=== PATIENT | female | born 1980 | race Caucasian/White ===

== ENCOUNTER 2020-09-25 14:08 | Emergency (ER) | payer OTHER ==
[2020-09-25 14:42] LABS: HCG UR QUAL NEGATIVE
[2020-09-25 14:43] LABS: BILIRUBIN,URINE NEGATIVE (NEGATIVE); GLUCOSE, URINE (UA) NEGATIVE (NEGATIVE); KETONES,URINE (UA) NEGATIVE (NEGATIVE); LEUKOCYTE ESTERASE, URINE NEGATIVE (NEGATIVE); NITRITE,URINE NEGATIVE (NEGATIVE); OCCULT BLOOD,URINE SMALL (NEGATIVE); PROTEIN,URINE NEGATIVE (NEGATIVE); UROBILINOGEN,URINE 0.2 (NORMAL) E.U./dL (NORMAL)
[2020-09-25 14:44] LABS: CLARITY,URINE CLEAR (CLEAR)
[2020-09-25 14:45] LABS: BACTERIA,URINE None Seen /HPF (None Seen); RBC,URINE 0-5 /HPF (0-5); SQUAMOUS EPITHELIAL CELL,UR RARE Squamous (<= Few); WBC,URINE 0-3 /HPF (0-5)
[2020-09-25 14:58] LABS: BASOPHILS % (AUTO) 0.3 %; EOSINOPHILS # (AUTO) 0.5 10^3/uL (0.0-0.7); EOSINOPHILS % (AUTO) 4.1 %; HGB - HEMOGLOBIN 14.2 g/dL (12.0-16.0); LYMPHOCYTES # (AUTO) 2.8 10^3/uL (1.5-3.5); LYMPHOCYTES % (AUTO) 23.2 %; MEAN CORPUSCULAR HEMOGLOBIN 33.9 pg (27.0-31.0); MEAN CORPUSCULAR HGB CONC 34.6 g/dL (32.0-36.0); MEAN CORPUSCULAR VOLUME 97.9 fL (81.0-99.0); MONOCYTES # (AUTO) 0.8 10^3/uL (0.0-1.0); MONOCYTES % (AUTO) 6.3 %; NEUTROPHILS # (AUTO) 7.8 10^3/uL (1.5-6.6); NEUTROPHILS % (AUTO) 65.8 %; PLT - PLATELET COUNT 277 10^3/uL (130-450); RED BLOOD COUNT 4.19 10^6/uL (4.20-5.40); RED CELL DISTRIBUTION WIDTH 11.6 % (12.0-15.0); WHITE BLOOD COUNT 11.9 x10^3/uL (4.8-10.8)
[2020-09-25 15:10] LABS: ALBUMIN 4.2 g/dL (3.2-5.5); ALBUMIN/GLOBULIN RATIO 1.4 (1.0-2.2); BILIRUBIN,TOTAL 0.9 mg/dL (0.2-1.0); CALCIUM 9.4 mg/dL (8.5-10.3); CREATININE 0.8 mg/dL (0.4-1.0); POTASSIUM 3.9 mmol/L (3.5-5.0); TOTAL PROTEIN 7.3 g/dL (6.7-8.2)
--- NOTE | 2020-09-25 16:41 | ED Physician Documentation ---
History of Present Illness - Stated complaint Stated Complaint: ABD PX - Chief complaint Chief Complaint: Abd Pain - Additonal information Additional information: Yesterday she was having a [id number] female presents the emergency depart ment for evaluation of rectal bleeding and lower abdominal pain. Of lower belly pain. She defecated but when she wiped she noticed that there was blood on the toilet paper though none on the stool. She dismissed it until today when she had another recurrence of abdominal pain followed by defecation. Again the stool was brown in the toilet call letter was not pink but when she wiped she had a large amount of blood on the toilet paper. Thus she returns to the ER. Daily tobacco and NSAID user. No history of surgery on her abdomen. Denies constipation or painful bowel movements. Review of Systems Constitutional: denies: Fever, Chills Nose: reports: Reviewed and negative Throat: reports: Reviewed and negative Cardiac: reports: Reviewed and negative Respiratory: reports: Reviewed and negative GI: reports: Abdominal Pain, Bloody / black stool. denies: Nausea, Constipation, Diarrhea : denies: Dysuria Skin: reports: Reviewed and negative Musculoskeletal: reports: Reviewed and negative PD PAST MEDICAL HISTORY - Allergies Allergies/Adverse Reactions: Allergies Allergy/AdvReac Type Severity Reaction Status Date / Time latex Allergy Rash Verified 09/25/20 14:23 PD ED PE EXPANDED - General General: Alert, No acute distress - Cardiac Cardiac: Regular Rate, Radial strong equal, Pedal strong equal, Cap refill < 2 sec. No: Murmur Present - Respiratory Respiratory: Clear to ausultation nathalie. No: Distress, Labored - Abdomen Abdomen: Normal Bowel sounds, Tender to palpation (lower abd tenderness without guarding or rebound) - Rectal Rectal: Normal Tone, Other (Digital rectal exam unrevealing. No tenderness. Brown stool in vault sent for guaiac. No obvious hemorrhoids fissures or lesions.). No: Hemorrhoid - Derm Derm: Normal color, Warm and dry Results - Vitals Vitals: Vital Signs - 24 hr 09/25/20 09/25/20 14:19 16:54 Temperature 36.3 C L 36.4 C L Heart Rate 67 55 L Respiratory 16 17 Rate Blood Pressure 124/74 124/70 O2 Saturation 100 100 Oxygen O2 Source Room air - Labs Labs: Microbiology 09/25/20 16:39 Occult Blood - Final Stool Laboratory Tests 09/25/20 09/25/20 09/25/20 12:51 12:51 14:26 WBC 11.9 H RBC 4.19 L Hgb 14.2 Hct 41.0 MCV 97.9 MCH 33.9 H MCHC 34.6 RDW 11.6 L Plt Count 277 MPV 9.0 Neut # (Auto) 7.8 H Lymph # (Auto) 2.8 Evans # (Auto) 0.8 Eos # (Auto) 0.5 Baso # (Auto) 0.0 Absolute Nucleated RBC 0.00 Nucleated RBC % 0.0 Sodium 135 Potassium 3.9 Chloride 103 Carbon Dioxide 26 Anion Gap 6.0 BUN 10 Creatinine 0.8 Estimated GFR (MDRD) 81 L Glucose 106 H Calcium 9.4 Total Bilirubin 0.9 AST 14 ALT 10 Alkaline Phosphatase 91 Total Protein 7.3 Albumin 4.2 Globulin 3.1 Albumin/Globulin Ratio 1.4 Lipase 28 Urine Color YELLOW Urine Clarity CLEAR Urine pH 6.0 Ur Specific [place] 1.020 Urine Protein NEGATIVE Urine Glucose (UA) NEGATIVE Urine Ketones NEGATIVE Urine Occult Blood SMALL H Urine Nitrite NEGATIVE Urine Bilirubin NEGATIVE Urine Urobilinogen 0.2 (NORMAL) Ur Leukocyte Esterase NEGATIVE Urine RBC 0-5 Urine WBC 0-3 Ur Squamous Epith Cells RARE Squamous Urine Bacteria None Seen Ur Microscopic Review INDICATED Urine Culture Comments NOT INDICATED Urine HCG, Qual 09/25/20 14:26 WBC RBC Hgb Hct MCV MCH MCHC RDW Plt Count MPV Neut # (Auto) Lymph # (Auto) Evans # (Auto) Eos # (Auto) Baso # (Auto) Absolute Nucleated RBC Nucleated RBC % Sodium Potassium Chloride Carbon Dioxide Anion Gap BUN Creatinine Estimated GFR (MDRD) Glucose Calcium Total Bilirubin AST ALT Alkaline Phosphatase Total Protein Albumin Globulin Albumin/Globulin Ratio Lipase Urine Color Urine Clarity Urine pH Ur Specific [place] Urine Protein Urine Glucose (UA) Urine Ketones Urine Occult Blood Urine Nitrite Urine Bilirubin Urine Urobilinogen Ur Leukocyte Esterase Urine RBC Urine WBC Ur Squamous Epith Cells Urine Bacteria Ur Microscopic Review Urine Culture Comments Urine HCG, Qual NEGATIVE - Rads (name of study) CT abd/pelvis Radiology: Final report received (No acute abnormality in the abdomen or pelvis. Fibroid uterus. Left ovarian corpus luteal cyst.) PD MEDICAL DECISION MAKING - ED course Complexity details: reviewed results, re-evaluated patient, d/w patient ED course: 39-year-old female presents emergency department for evaluation of lower abdominal pain and rectal bleeding. She reports the pain and cramping began yesterday afternoon. Some of nausea but no vomiting. No fevers. She has been defecating normally and reports brown stools however after defecation she has noted that there is a large amount of blood on the toilet paper. Today on presentation she appears well and in no distress. Abdominal exam showed just a little bit of lower abdominal tenderness without guarding or rebound. I did complete a digital rectal exam to reveal nontender rectum brown stool in the vault. It was sent for guaiac and was negative. Screening labs show no significant worrisome abnormality. We did do a CT of the abdomen that was also unrevealing. At this time the cause of the lower abdominal pain and rectal bleeding is not clear. Certainly her hemoglobin is healthy. I have advised her to have close follow-up with [facility]. She may benefit from referral for a colonoscopy. This may be a small bleeding hemorrhoid but that certainly does not account for the lower abdominal pain thus a polyp is also in the differential. Emergent return precautions were discussed. Departure - Departure Disposition: 01 Home, Self Care Clinical Impression: Lower abdominal pain, Rectal bleeding Condition: Stable Record reviewed to determine appropriate education?: Yes Instructions: Abdominal Pain Comments: Mara you are seen in the ER today for lower abdominal pain and rectal bleeding. As we discussed your screening labs were essentially normal and did not show any worrisome findings. I did do a rectal exam that was also normal. The stool in your rectum was brown and was sent for guaiac and it did not show any blood. The CT of your abdomen also showed no worrisome findings with regards to your intestines or appendix. At this time you are to continue follow-up with [facility]. You may benefit from referral for a colonoscopy as polyps can cause similar symptoms. At any point you have worsening symptoms severe pain uncontrolled vomiting, feel faint or lightheaded please return immediately to the ER for a second look.
[2020-09-25] MEDS ORDERED: IOVERSOL 320 100 ML VIAL IVP ONE (16:43)
[2020-09-25 16:55] VITALS: BP 124/70
[2020-09-25] MEDS: IOVERSOL 320 100 ML VIAL IVP ONE (17:31)
--- NOTE | 2020-09-25 17:44 | CT Report ---
PROCEDURE: Abdomen/Pelvis W INDICATIONS: rectal bleeding, lower abd pain CONTRAST: IV CONTRAST: Optiray 320 ml: 100 PO CONTRAST: *NO PO CONTRAST TECHNIQUE: After the administration of intravenous contrast, 5 mm thick sections acquired from the diaphragms to the symphysis. 5 mm thick coronal and sagittal reformats were acquired. For radiation dose reducti on, the following was used: automated exposure control, adjustment of mA and/or kV according to edwin ent size. COMPARISON: None. FINDINGS: Image quality: Excellent. ABDOMEN: Lung bases: There is dependent atelectasis in the lung bases.. Heart size is normal. Solid organs: Liver and spleen are normal in size and enhancement. Gallbladder appears normal. Delfin iary system is non dilated. Pancreas enhances normally. No adrenal nodules. Kidneys demonstrate no rmal size and enhancement, without hydronephrosis. Peritoneum and bowel: Bowel loops demonstrate normal wall thickness and caliber. Normal appendix. N o free fluid or air. Nodes and vessels: No retroperitoneal or mesenteric adenopathy by size criteria. Aorta and inferior vena cava are normal in size. Miscellaneous: No ventral hernias. PELVIS: Genitourinary: Bladder wall thickness is normal. . Uterus. A corpus luteal cyst is seen in the left ovary. Miscellaneous: No inguinal hernias or adenopathy. Bones: No suspicious bony lesions. No vertebral body compression fractures. IMPRESSION: 1. No acute abnormality in the abdomen or pelvis. 2. Fibroid uterus. Left ovarian corpus luteal cyst. Reviewed by: Jignesh Valera MD on 09/25/2020 4:43 PM STEFANIE Approved by: Jignesh Valera MD on 09/25/2020 4:43 PM NHIZABELLA Station ID: [id number]
== END 2020-09-25 18:43 | disposition home or self-care (01) ==
LOC: ED 14:08
DX: R10.30 Lower abdominal pain, unspecified (principal); K62.5 Hemorrhage of anus and rectum; R11.0 Nausea; N83.12 Corpus luteum cyst of left ovary; D25.9 Leiomyoma of uterus, unspecified; F17.200 Nicotine dependence, unspecified, uncomplicated
CPT/HCPCS: 36415; 74177; 80053; 81001; 81025; 82270; 83690; 85025; 99283; 99284; Q9967; 81003; 87086

== ENCOUNTER 2023-10-26 13:42 | Outpatient (CLI) | payer OTHER ==
--- NOTE | 2023-10-26 14:49 | CARDIAC PROCEDURE NOTE ---
Stress Test Report Service Date: 10/26/23 Service Time: 14:00 Ordering Provider: Erick Pereira Indication for Test: Assess exertional chest tightness experienced at elevated heart rates while bicycling. Significant Medical History: Mara is referred for an exercise tolerance test today, to evaluate her concern for the intermittent experience of chest tightness and difficulty getting a full breath, that may occur when she is doing stationary bicycling and reaches heart rates in excess of 120-130 bpm. The discomfort is nonradiating, but can be associated with disproportionate diaphoresis, and the symptoms take 5-10 minutes to fully resolve upon resting. 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 She reports that she likes to walk, though does not get up and down hills very much and she does not believe that her stamina has changed notably, in recent times. Cardiac Risk Factors: Positive for active cigarette smoking (0.5 ppd currently, total exposure estimated at 23 pack-years); negative for history of hypertension, diabetes, hyperlipidemia and family history of vascular disease, such as heart attack or stroke. She has no history of premature menopause. Type of Stress Test: Exercise Treadmill Test (ETT) Procedure: -Exercise Treadmill Test- After signing informed consent, the patient performed treadmill exercise using a Ryan protocol. The patient exercised for 6 minutes 29 seconds and achieved a peak heart rate of 160 (89 percent predicted maximum heart rate for age), and an estimated workload of 7.8 METS. The test was terminated due to fatigue/shortness of breath. Resting heart rate: 78 Peak heart rate: 160 Normal response to exercise. Resting BP: 127/89 Peak BP: 201/62 Borderline hypertensive BP response to exercise. Room air oxygen saturation during exercise ranged between 98-100%. Rhythm during exercise: Sinus rhythm throughout without ectopy. Symptoms: At the start of stage 3, she had some difficulty adjusting to the increased speed and incline of the treadmill, with attendant "stress", but not really her typical chest tightness. EKG at rest showed normal sinus rhythm, normal in all aspects. EKG at peak stress showed J-point depression with upsloping ST segments, NOT meeting EKG diagnostic criteria for ischemia. In Recovery HR and BP decreased towards resting levels (HR 102, BP 151/80 at 5:00). No imaging was ordered with this stress test. IDarrell MD, was present throughout this treadmill stress study and supervised it in its entirety. Summary: 1) Exercise tolerance was significantly reduced for age and sex as evidenced by IRENE of 25%. 2) Normal resting EKG. 3) Adequate level of exercise was achieved on this treadmill stress test. 4) Borderline hypertensive BP response to exercise. 5) No ischemic changes by EKG criteria were seen at peak stress. 6) No imaging was ordered with this test. Conclusions and Recommendations: 1) Overall these are likely reassuring results with respect to the patient's concern for chest tightness at elevated heart rates, which was not clearly recreated on the treadmill today, nor was there diagnostic ST depression noted. Her hemodynamic responses were slightly abnormal with peak blood pressure of 201/62, and the most notable abnormality was an IRENE of 25%. 2) We discussed that the most likely reason for her reduced exercise time is her longstanding cigarette smoking history. She has tried to quit a few times using nicotine replacement without success, and, in fact, with some side effects. She has not had a pharmacologically-assisted attempt using an agent such as Wellbutrin or Chantix. She is encouraged to discuss this with her referring provider. 3) We also discussed that a stand-alone ETT is about 60 to 70% sensitive to exclude ischemia and if her symptoms persist then repeating the study with either echocardiographic or radionuclide imaging would be expected to add significant sensitivity and specificity beyond today's results. Hopefully she will make progress in becoming abstinent from tobacco smoking and her symptoms will minesh, but a repeat test with imaging if symptoms persist would be very reasonable.
== END 2023-10-26 13:43 | disposition home or self-care (01) ==
LOC: DI 13:42
PROVIDERS: ATTEND Family Medicine
DX: I20.89 Other forms of angina pectoris (principal); R53.83 Other fatigue; R06.02 Shortness of breath; F17.210 Nicotine dependence, cigarettes, uncomplicated
CPT/HCPCS: 93017